=== PATIENT | male | born 1955 | race Caucasian/White ===

== ENCOUNTER 2020-10-12 18:21 | Inpatient (IN) | payer OTHER ==
[~2020-10-12] VITALS: Ht 170.2 cm; Wt 81.6 kg
[~2020-10-12 18:21] MED LIST: ALTACE5 M1 PO; AMOXICILLIN875 MG PO; ATORVASTATIN CA20 MG PO; BAYER CHEWABLE81 MG PO; BENICAR HCT 401 EAC1 PO; BENICAR20 MG; CENTRUM SILVER1 EAC2 PO; EFFIENT10 MG PO; FENOFIBRATE48 MG PO; FISH OIL 1,0001 EAC5 PO; FISH OIL 1,001000 M2 PO; KOMBIGLYZE XR1 EACH PO; LANTUS SUBQ; LEVEMIR SUBQ; LOPRESSOR 50 MG50 M1 PO; LOPRESSOR25 PO; LOPRESSOR50 PO; METOPROLOL SUCC50 MG PO; NORCO 5-325 TA1 EACH PO; NORVASC 2.5 MG2.5 M1 PO; NOVOLOG100 UNIT/1 SUBQ; PLAVIX 75 MG TA75 M1 PO; SIMVASTATIN40 MG PO; TRICOR145 MG PO; TYLENOL325 MG PO
[2020-10-12 18:33] VITALS: BP 150/88
[2020-10-12 19:53] LABS: ABSOLUTE NEUTROPHILS 6.9 thou/uL (1.4-8.2); BASOPHILS 1.1 % (0.0-2.0); EOSINOPHILS 1.9 % (0.0-3.0); HEMATOCRIT 37.2 % (42.0-52.0); HEMOGLOBIN 12.8 gm/dL (14.0-18.0); LYMPHOCYTES 19.8 % (24.0-44.0); MCH 32.3 pg (26.0-34.0); MCHC 34.4 g/dL (28.0-37.0); MCV 93.9 fL (80.0-100.0); MONOCYTES 8.9 % (1.0-8.0); PLATELET COUNT 241 thou/uL (150-400); POLYS 68.3 % (36.0-66.0); RBC 3.96 mil/uL (4.50-6.00); RDW 12.9 % (10.5-14.5); WBC 10.1 thou/uL (4.0-11.0)
[2020-10-12 20:01] LABS: ANION GAP 9 mmol/L (7-16); BUN 37 mg/dL (7-18); CALCIUM 10.2 mg/dL (8.5-10.1); CHLORIDE 103 mmol/L (98-107); CO2 26 mmol/L (21-32); CREATININE 2.5 mg/dL (0.7-1.3); GLUCOSE 187 mg/dL (74-106); POTASSIUM 3.9 mmol/L (3.5-5.1); SODIUM 138 mmol/L (136-145)
[2020-10-12 20:07] LABS: ALBUMIN 4.1 g/dL (3.4-5.0); DIRECT BILIRUBIN < 0.1 mg/dL (<0.1-0.2); SGOT 19 U/L (15-37); SGPT 27 U/L (16-63); TOTAL BILIRUBIN 0.3 mg/dL (0.2-1.0); TOTAL PROTEIN 8.1 g/dL (6.4-8.2)
[2020-10-12 20:48] VITALS: BP 150/88
--- NOTE | 2020-10-12 21:06 | NUR ---
ATTEMPTED TO CALL REPORT TO [facility]. UNABLE TO TAKE REPORT
[2020-10-12] MEDS ORDERED: GLIPIZIDE 10 MG10 MG PO (21:10)
[2020-10-12] MEDS ORDERED: GLUCOPHAGE1000 MG PO (21:10)
[2020-10-12] MEDS ORDERED: NOVOLOG100 UNIT/M SUBQ (21:11)
[2020-10-12] MEDS ORDERED: FENOFIBRATE145 M1 PO (21:11)
[2020-10-12] MEDS ORDERED: ZESTORETIC 20-1 EACH PO (21:13)
[2020-10-12] MEDS ORDERED: TOPROL XL100 MG PO (21:14)
[2020-10-12] MEDS ORDERED: GLUCOTROL10 MG PO (21:14)
[2020-10-12 21:30] VITALS: BP 172/82
[2020-10-12] MEDS ORDERED: METOPROLOL SUCC50 MG PO (23:20)
[2020-10-13 02:12] VITALS: BP 172/82
--- NOTE | 2020-10-13 04:59 | NUR ---
ADMIT PT A/O X4 UP AD MICKIE DENIES PAIN. ADMISSION PROCESS COMPLETED. PHOTOGRAPH OF LEFT FOOT WOUND, AREA CLEANSED THEN MOISTURIZED COVERED WITH XEROFORM GAUZE AND KERLIX. ORIENTED TO ROOM CALL LIGHT SYSTEM AND POC. CONSULTS NOTIFIED CONTINUE TO MONITOR.
[2020-10-13 05:26] LABS: HEMATOCRIT 35.1 % (42.0-52.0); HEMOGLOBIN 11.5 gm/dL (14.0-18.0); MCH 31.2 pg (26.0-34.0); MCHC 32.8 g/dL (28.0-37.0); MCV 95.3 fL (80.0-100.0); RBC 3.69 mil/uL (4.50-6.00); WBC 10.2 thou/uL (4.0-11.0)
[2020-10-13 05:42] LABS: CALCIUM 9.1 mg/dL (8.5-10.1); CREATININE 2.1 mg/dL (0.7-1.3); POTASSIUM 3.8 mmol/L (3.5-5.1)
[2020-10-13 07:41] VITALS: BP 134/76
[2020-10-13] MEDS ORDERED: FREESTYLE LIBR1 EAC2 MISCELL (09:13)
[2020-10-13 15:18] VITALS: BP 148/76
--- NOTE | 2020-10-13 17:12 | NUR ---
PT ASSESSED AT START OF SHIFT. NO C/O PAIN IN LT FOOT. DR. MANCIA IN THIS AM TO SEE PT. ULTRASOUND DONE ON VASCULAR FLOW. DSNG CHANGED PER MRI TO BE DONE THURSDAY NOT NEEDED URGENTLY. ACCUCK LOW THIS AM BUT BETTER THIS AFTERNOON. PT UP IN THE RECLINER W/ LEGS ELEVATED.
[2020-10-13 19:33] VITALS: BP 143/79
--- NOTE | 2020-10-14 05:26 | HC ---
[facility] [place] [address] CONSULTATION Name: PATRICIA ROBBISN Room #: 455-P ADM IN M.R.#: [id number] Admission: 10/12/20 Attend Phys: Naman Dinh MD Discharge: Date of : 53 Report #: [id number] THIS REPORT FOR: cc: Thierry Crocker MD, Jinming MD Barry,Heraclio Rose MD ~ DATE OF SERVICE: 10/13/2020 INFECTIOUS DISEASE CONSULTATION ATTENDING PHYSICIAN: Dr. Dinh REASON FOR EVALUATION: Diabetic foot ulcer, suspected deep infection. HISTORY OF SUBJECTIVE: Chart reviewed, patient examined. This is a 65-year-old gentleman with diabetes mellitus complicated by peripheral neuropathy, had developed a change in his toe, only noticed because he was showering. Denies any significant pain associated with it. This is involved with left fourth toe, had been evaluated in the Emergency Room at another hospital, felt to have an infectious process, was discharged on antibiotics and referred to manager surgical. Did see a manager surgical in followup, who was recommended for admission, underwent plain imaging which did not show any evidence of bony changes to suggest an osteomyelitis. MRI is pending. His inflammatory markers have been borderline elevated. Blood sugars have not been significantly elevated, empirically started on therapy with vancomycin. Blood and tissue cultures are in progress. Denies any pulmonary or gastrointestinal related complaints. He has not been febrile. ALLERGIES: None known. MEDICATIONS: Include enoxaparin, atorvastatin, metoprolol, multivitamin, aspirin, fenofibrate, vancomycin, p.r.n. analgesics and antiemetics. PAST MEDICAL HISTORY: Diabetes mellitus complicated by peripheral neuropathy, history of hypertension, has known vasculopathy, coronary artery disease, previous aortocoronary bypass grafting. SOCIAL HISTORY: Nonsmoker, occasional ethanol, no illicit drug use. FAMILY HISTORY: Noncontributory. REVIEW OF SYSTEMS: Otherwise, unremarkable 10-point review of systems. PHYSICAL EXAMINATION: GENERAL: He is alert, cooperative, appears somewhat mildly undernourished. He [address] [address] CONSULTATION Name: PATRICIA ROBBINS Room #: [address] [place] [address] IN ..#: [id number] Admission: 10/12/20 Attend Phys: Naman Dinh MD Discharge: Date of : 53 Report #: [id number] is lucid. VITAL SIGNS: Temperature 98.1, pulse 63, respiratory rate 18, blood pressure 172/82. SKIN: Warm, dry, no rashes. HEENT: Normocephalic. Extraocular muscles intact. NECK: Supple. LUNGS: Generally clear to auscultation bilaterally. HEART: Regular. Borderline bradycardic. I do not appreciate murmur. ABDOMEN: Soft, mildly distended, nontender. EXTREMITIES: Distal left lower extremity has a dressing in place. I did review the photographs of the fourth toe, has moderate to marked inflammatory changes. GENITOURINARY AND RECTAL: Deferred. LABORATORY DATA: Electrolytes this morning, sodium 140, potassium 3.8, chloride 106, bicarbonate is 22, anion gap of 14, BUN and creatinine 34 and 2.1 the latter actually is down from admission 2.5. LFTs were unremarkable. Albumin 4.1, total protein of 8.1. Lactic acid 1.6. CRP of ____. Sed rate of 53. ASSESSMENT: Left fourth toe likely deep seated infection in a patient with diabetes mellitus complicated by peripheral neuropathy. Agree with empiric therapy, vancomycin should give us reasonable gram-positive coverage. At this point, there is no particular odor, no overt purulence that I could appreciate. The MRI is pending as are the cultures noted. ____ involved. We will defer to any surgical debridement that may be necessary. We will add incentive spirometry. Monitor expectantly. <ELECTRONICALLY SIGNED> By: Heraclio Miller MD 10/14/20 0526 0835 1016 Heraclio Miller MD /nt
--- NOTE | 2020-10-14 06:21 | NUR ---
Pt. rested quietly during the night when checked on during frequent rounds. He offers no c/o pain. Left foot rewapped.
[2020-10-14 07:25] VITALS: BP 144/86
[2020-10-14 15:25] VITALS: BP 138/65
--- NOTE | 2020-10-14 19:54 | NUR ---
Assumed care of pt. at 0700. Pt. was calm and cooperative. Pt. was not in pain. Dr. Ryan's SOFTWARE QUALITY TEST ENGINEER called and ordered pt. be NPO after midninght for angiogram on morning og 10/15/20 with orders to also hold enoxaparin.
[2020-10-14 20:16] VITALS: BP 145/65
[2020-10-14 21:24] LABS: GLYCOHEMOGLOBIN (HGB A1C) 7.6 % (4.8-5.6)
--- NOTE | 2020-10-15 05:06 | NUR ---
Pt. rested quietly during the night when checked on during frequent rounds. He offers no c/o pain. Dressing to left foot is dry and intact.
[2020-10-15 07:54] VITALS: BP 140/63
[2020-10-15 08:00] LABS: CALCIUM 9.4 mg/dL (8.5-10.1); CREATININE 2.2 mg/dL (0.7-1.3); POTASSIUM 4.3 mmol/L (3.5-5.1)
--- NOTE | 2020-10-15 08:54 | NUR ---
PT A&OX4, VSS, DENIES PAIN. PATIENT STEADY GAIT TO BATHROOM. PATIENT WENT DOWN FOR ANGIOGRAM APPROX 0845. NO SIGNS OF DISTRESS. WILL CONTINUE TO MONITOR.
[2020-10-15 15:26] VITALS: BP 149/90
--- NOTE | 2020-10-15 17:37 | NUR ---
PT TRANSFERED FROM [facility] POST ARTERIOGRAM. PT ORINETED TO ROOM AND BEDSPACE VSS AND GROIN SITE STABLE POST PROCEDURE. CONSTANZA DIET AND FLUIDS. ACCUCHECK CHARTED - MEDS PER DEC- PT TO BE NPO AFTER MN FOR POSSIBLE SURGERY IN THE AM. NO CO'S AT THE PRESENT TIME.
[2020-10-15 20:15] VITALS: BP 149/86
[2020-10-16] VITALS: BP 157/89
[2020-10-16 04:00] VITALS: BP 150/80
[2020-10-16 04:48] LABS: HEMATOCRIT 33.9 % (42.0-52.0); HEMOGLOBIN 11.4 gm/dL (14.0-18.0); MCH 31.7 pg (26.0-34.0); MCHC 33.5 g/dL (28.0-37.0); MCV 94.7 fL (80.0-100.0); RBC 3.58 mil/uL (4.50-6.00); RDW 12.8 % (10.5-14.5); WBC 12.3 thou/uL (4.0-11.0)
[2020-10-16 05:00] VITALS: BP 146/84
[2020-10-16 05:13] LABS: CALCIUM 8.6 mg/dL (8.5-10.1); CREATININE 1.9 mg/dL (0.7-1.3); POTASSIUM 3.8 mmol/L (3.5-5.1)
[2020-10-16 07:24] VITALS: BP 155/86
[2020-10-16] MEDS ORDERED: AUGMENTIN 875-1 EACH PO (10:24)
[2020-10-16] MEDS ORDERED: CLOPIDOGREL75 MG PO (10:24)
--- NOTE | 2020-10-16 10:56 | NUR ---
met with patient who admits with cellulitis of foot. Patient reports he lives at home alone. He has flight of steps to basement. 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 he does not use any DME. He has rec HH in past but cannot recall agency. If dc with orders for HH care he has no preference for agency. Verified address and phone number and PCP Dr Crocker. Tenative plan for dc today.
[2020-10-16 11:27] VITALS: BP 135/72
[2020-10-16 11:59] VITALS: BP 135/72
--- NOTE | 2020-10-16 12:06 | NUR ---
FAXED REFERRAL TO [facility] HH SPOKE WITH LIZZY IN INTAKE THEY CAN ACCEPT PT AT [place].
--- NOTE | 2020-10-16 14:37 | NUR ---
DISCHARGE AND MEDICATIONS INSTRUCTIONS GIVEN TO PATIENT AND PATIENT DISCHARGED HOME.
--- NOTE | 2020-10-16 16:12 | NUR ---
PT DISCHARGED EARLIER TODAY RECEIVED CALL FROM ALEX IRIZARRY AT [facility] SHE WAS NEEDING SPECIFIC DRESSING CHANGE ORDERS AND I FAXED TODAY'S PROGRESS NOTE FROM DR MANCIA AND LET THEM KNOW THAT IF THEY PROGRESS NOTES IS NOT ENOUGH THEN THEY WILL HAVE TO F/U WITH DR. MANCIA.
[2020-10-22] MEDS ORDERED: VALIUM10 MG PO (09:13)
== END 2020-10-16 14:53 | disposition home health service (06) | DRG 270 ==
LOC: ER 18:21 → 4W 20:40 → EROBS 20:40 → 4W 21:53 → 2N 10-15 12:08
PROVIDERS: Emergency Medicine; Nurse Practitioner; Nurse Practitioner Family; ADMIT Hospitalist; ATTEND Hospitalist
PROC: 04VL3DZ Restriction of Left Femoral Artery with Intraluminal Device, Percutaneous Approach (ICD-10-PCS; principal; 2020-10-15)
PROC: 04CN3ZZ Extirpation of Matter from Left Popliteal Artery, Percutaneous Approach (ICD-10-PCS; principal; 2020-10-15)
PROC: 04CL3ZZ Extirpation of Matter from Left Femoral Artery, Percutaneous Approach (ICD-10-PCS; principal; 2020-10-15)
PROC: B4151ZZ Fluoroscopy of Inferior Mesenteric Artery using Low Osmolar Contrast (ICD-10-PCS; principal; 2020-10-15)
PROC: B4141ZZ Fluoroscopy of Superior Mesenteric Artery using Low Osmolar Contrast (ICD-10-PCS; principal; 2020-10-15)
PROC: B4181ZZ Fluoroscopy of Bilateral Renal Arteries using Low Osmolar Contrast (ICD-10-PCS; principal; 2020-10-15)
PROC: B41D1ZZ Fluoroscopy of Aorta and Bilateral Lower Extremity Arteries using Low Osmolar Contrast (ICD-10-PCS; principal; 2020-10-15)
PROC: 06HD3DZ Insertion of Intraluminal Device into Left Common Iliac Vein, Percutaneous Approach (ICD-10-PCS; principal; 2020-10-15)
PROC: 04HA3DZ Insertion of Intraluminal Device into Left Renal Artery, Percutaneous Approach (ICD-10-PCS; principal; 2020-10-15)
DX: E11.51 Type 2 diabetes mellitus with diabetic peripheral angiopathy without gangrene (principal); N17.0 Acute kidney failure with tubular necrosis; K55.1 Chronic vascular disorders of intestine; T82.858A Stenosis of other vascular prosthetic devices, implants and grafts, initial encounter; E11.621 Type 2 diabetes mellitus with foot ulcer; L03.032 Cellulitis of left toe; E11.42 Type 2 diabetes mellitus with diabetic polyneuropathy; I10 Essential (primary) hypertension; E78.5 Hyperlipidemia, unspecified; I77.1 Stricture of artery; Y83.8 Other surgical procedures as the cause of abnormal reaction of the patient, or of later complication, without mention of misadventure at the time of the procedure; I25.10 Atherosclerotic heart disease of native coronary artery without angina pectoris; I25.2 Old myocardial infarction; Z79.01 Long term (current) use of anticoagulants; Z79.4 Long term (current) use of insulin; Z79.899 Other long term (current) drug therapy; Y92.89 Other specified places as the place of occurrence of the external cause; Z20.828 Contact with and (suspected) exposure to other viral communicable diseases
CPT/HCPCS: 10040; 10081

== ENCOUNTER → 2020-10-22 | Outpatient (CLI) | payer OTHER ==
[2020-10-22] VITALS (8 sets, daily range): BP systolic 133–147; BP diastolic 70–81
[~2020-10-22] VITALS: Ht 170.2 cm; Wt 81.6 kg
[~2020-10-22] MED LIST changes: +AUGMENTIN 875-1 EACH PO; +CLOPIDOGREL75 MG PO; +FENOFIBRATE145 M1 PO; +FREESTYLE LIBR1 EAC2 MISCELL; +GLIPIZIDE 10 MG10 MG PO; +GLUCOPHAGE1000 MG PO; +GLUCOTROL10 MG PO; +NOVOLOG100 UNIT/M SUBQ; +TOPROL XL100 MG PO; +VALIUM10 MG PO; +ZESTORETIC 20-1 EACH PO
[2020-10-22 09:10] LABS: CALCIUM 10.3 mg/dL (8.5-10.1); CREATININE 2.1 mg/dL (0.7-1.3); POTASSIUM 3.7 mmol/L (3.5-5.1)
== END | disposition home or self-care (01) ==
LOC: CATH 07:55
PROVIDERS: ATTEND Nuclear Medicine Nuclear Cardiology
DX: E11.621 Type 2 diabetes mellitus with foot ulcer (principal); L97.512 Non-pressure chronic ulcer of other part of right foot with fat layer exposed; I70.238 Atherosclerosis of native arteries of right leg with ulceration of other part of lower leg; I70.1 Atherosclerosis of renal artery; L03.115 Cellulitis of right lower limb; I10 Essential (primary) hypertension; I25.10 Atherosclerotic heart disease of native coronary artery without angina pectoris; E78.00 Pure hypercholesterolemia, unspecified; I25.2 Old myocardial infarction; Z98.890 Other specified postprocedural states; Z79.899 Other long term (current) drug therapy; Z79.4 Long term (current) use of insulin

== ENCOUNTER → 2020-11-02 | Outpatient (CLI) | payer OTHER ==
[~2020-11-02] MED LIST changes: +ASA81BEC PO; +DAILY VALUE1 EAC1 PO; +GLUMETZA1000 PO; +LIPITOR40 MG PO; +PLAVIX 75 MG TA75 MG PO; +TOPROL XL50 MG PO; +ZESTORETIC 20-1 EAC3 PO
== END ==
LOC: LAB 11:40
PROVIDERS: ATTEND Podiatrist Foot & Ankle Surgery
DX: Z01.812 Encounter for preprocedural laboratory examination (principal); Z20.828 Contact with and (suspected) exposure to other viral communicable diseases

== ENCOUNTER 2020-11-06 06:09 | Day surgery (SDC) | payer OTHER ==
[~2020-11-06] VITALS: Ht 170.2 cm; Wt 78.9 kg
[2020-11-06 07:29] VITALS: BP 102/63
--- NOTE | 2020-11-06 07:40 | EKG ---
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 : 1955 Requested By: Eber Little Order Number: [id number] MD: Savage Liang Measurements Intervals [place] Rate: 61 P: 44 AL: 163 QRS: -8 QRSD: 103 T: 138 QT: 435 QTc: 439 Interpretive Statements Sinus rhythm Inferior infarct, old Lateral leads are also involved Compared to ECG 01/23/2015 13:10:57 Left ventricular hypertrophy no longer present Myocardial infarct finding still present Electronically Signed On 11-06-2020 7:40:49 WAITER/WAITRESS BAR by Savage Liang [email or web address] <ELECTRONICALLY SIGNED> By: Savage Liang MD, [facility] 11/06/20 0740 1 Savage Liang MD, [facility] /EPI
[2020-11-06] MEDS ORDERED: ULTRAM 50MG TAB50 MG PO (08:30)
[2020-11-06 08:50] VITALS: BP 102/63
--- NOTE | 2020-11-09 12:10 | PATH ---
[facility] [address] [place] [address] PATHOLOGY RPT PROCEDURE Name: SAVAGE ROBBINS Room #: DEP [facility] M.R.#: [id number] Admission: 11/06/20 Date of : 53 Discharge: 11/06/20 Report #: [id number] Path Case #: [id number] [facility] Accession Number: [id number] . 01 Material submitted: . toe - LEFT FOURTH TOE. Modifiers: fourth, left . 01 Clinical history: . AMPUTATION ELAM GRADE 3 DIABETIC FOOT ULCER WITH OSTEOMYLETITIS LEFT 4TH TOE . 02 Diagnosis: Toe, left foot toe, amputation: - Marked acute inflammation within subcutaneous tissue. - Acute inflammation involving bone consistent with acute osteomyelitis. - Margins of bone showing unremarkable and viable bone. (IUV:rocky; 11/08/2020) MBR 11/09/2020 1015 Local . 02 Electronically signed: . Shell Mendoza MD, Pathologist NPI- [id number] . 01 Gross description: . The specimen is received in formalin, labeled "Savage Robbins, left fourth toe". Received is an amputated digit measuring 4.3 x 1.9 x 1.8 cm in greatest dimensions. The bone margin is smooth and concave in appearance, consistent with disarticulation, and is inked black. The skin and soft tissue extends 1.8 cm proximal to the bone margin. The nail is present displaying a pale cruz and grossly unremarkable appearance. On the lateral aspect of the specimen, there is a well-circumscribed, depressed and light brown lesion measuring 0.8 x 0.5 cm, which is 0.4 cm from the closest margin. The remainder of the epidermal surface is pale cruz and flaky in appearance. The specimen is submitted representatively as follows: . A1 eligibility services representative section of lesion on lateral aspect of toe A2 full-thickness longitudinal cross-section, following decalcification. . Also received within the specimen container is an additional fragment of bone displaying one smooth, concave margin and one smooth, convex margin, both of which are consistent with disarticulation. The concave margin is inked black. A full-thickness longitudinal cross-section is submitted in cassette A3, following decalcification. (CAA; 11/07/2020) QAC/QAC 11/07/2020 1103 Local . [address] [place] [address] PATHOLOGY RPT PROCEDURE Name: SAVAGE ROBBINS Room #: DEP [facility] Shayan#: [id number] Admission: 11/06/20 Date of : 53 Discharge: 11/06/20 Report #: [id number] Path Case #: [id number] Pathologist provided ICD-10: L98.9, M86.172 . 02 CPT . 000092, 679166 Specimen Comment: A courtesy copy of this report has been sent to [phone], 156-[facility] Specimen Comment: [phone] Specimen Comment: Report sent to / DR BOB Performed at: [address], [place] [id number] MD Oskar Vizcaino MD Phone: [phone] Performed at: [address] [id number] MD Shell Mendoza MD Phone: [phone]
== END 2020-11-06 09:53 | disposition home or self-care (01) ==
LOC: OR 06:09 → TBA 06:10 → OR 09:53
PROVIDERS: ATTEND Podiatrist Foot & Ankle Surgery
DX: E11.621 Type 2 diabetes mellitus with foot ulcer (principal); L97.524 Non-pressure chronic ulcer of other part of left foot with necrosis of bone; M86.172 Other acute osteomyelitis, left ankle and foot; L98.9 Disorder of the skin and subcutaneous tissue, unspecified; I10 Essential (primary) hypertension; E78.00 Pure hypercholesterolemia, unspecified; I73.9 Peripheral vascular disease, unspecified; I25.2 Old myocardial infarction; Z98.890 Other specified postprocedural states; Z79.899 Other long term (current) drug therapy; Z86.73 Personal history of transient ischemic attack (TIA), and cerebral infarction without residual deficits; Z95.1 Presence of aortocoronary bypass graft; Z79.4 Long term (current) use of insulin
CPT/HCPCS: 50010; 50101; 50386; 56524; 56527; 57091; 62110; 62900; 70005

== ENCOUNTER 2020-11-07 20:59 | Emergency (ER) | payer OTHER ==
[~2020-11-07] VITALS: Ht 177.8 cm; Wt 72.6 kg
[~2020-11-07 20:59] MED LIST changes: +ULTRAM 50MG TAB50 MG PO
[2020-11-07 21:02] VITALS: BP 142/70
== END 2020-11-07 22:10 | disposition home or self-care (01) ==
LOC: ER 20:59
DX: M96.831 Postprocedural hemorrhage of a musculoskeletal structure following other procedure (principal); Z79.899 Other long term (current) drug therapy; Z79.82 Long term (current) use of aspirin

== ENCOUNTER → 2021-01-23 | Outpatient (CLI) | payer OTHER | LOC: SJCVCIMAG 09:16 | PROVIDERS: ATTEND Nuclear Medicine Nuclear Cardiology | DX: I70.203 Unspecified atherosclerosis of native arteries of extremities, bilateral legs (principal); K55.1 Chronic vascular disorders of intestine; I70.1 Atherosclerosis of renal artery; I25.10 Atherosclerotic heart disease of native coronary artery without angina pectoris; E11.621 Type 2 diabetes mellitus with foot ulcer; L97.509 Non-pressure chronic ulcer of other part of unspecified foot with unspecified severity; E11.40 Type 2 diabetes mellitus with diabetic neuropathy, unspecified; E11.51 Type 2 diabetes mellitus with diabetic peripheral angiopathy without gangrene; Z95.1 Presence of aortocoronary bypass graft; Z72.89 Other problems related to lifestyle; Z79.82 Long term (current) use of aspirin; Z79.4 Long term (current) use of insulin; Z79.899 Other long term (current) drug therapy; Z95.820 Peripheral vascular angioplasty status with implants and grafts ==

== ENCOUNTER → 2021-10-31 | Outpatient (CLI) | payer OTHER | LOC: SJCVCIMAG 09-17 13:04 | PROVIDERS: ATTEND Nuclear Medicine Nuclear Cardiology | DX: I65.23 Occlusion and stenosis of bilateral carotid arteries (principal); I70.203 Unspecified atherosclerosis of native arteries of extremities, bilateral legs; I10 Essential (primary) hypertension; M79.606 Pain in leg, unspecified ==

== ENCOUNTER → 2021-11-06 | Outpatient (CLI) | payer OTHER ==
[~2021-11-06] MED LIST changes: +COZAAR 25 MG TA25 M2 PO; +GLIMEPIRIDE1 MG PO; +JARDIANCE10 MG PO
== END ==
LOC: SJCVC 14:49
PROVIDERS: ATTEND Nuclear Medicine Nuclear Cardiology
DX: R94.31 Abnormal electrocardiogram [ECG] [EKG] (principal); I25.10 Atherosclerotic heart disease of native coronary artery without angina pectoris; I73.9 Peripheral vascular disease, unspecified; I77.9 Disorder of arteries and arterioles, unspecified; I70.1 Atherosclerosis of renal artery; K55.1 Chronic vascular disorders of intestine; E11.9 Type 2 diabetes mellitus without complications; R06.00 Dyspnea, unspecified; E78.5 Hyperlipidemia, unspecified; E11.40 Type 2 diabetes mellitus with diabetic neuropathy, unspecified; I77.1 Stricture of artery; Z95.1 Presence of aortocoronary bypass graft; Z79.82 Long term (current) use of aspirin; Z79.4 Long term (current) use of insulin; Z79.899 Other long term (current) drug therapy

== ENCOUNTER → 2021-11-18 | Outpatient (CLI) | payer OTHER | LOC: SJCVCIMAG 09:20 | PROVIDERS: ATTEND Internal Medicine Cardiovascular Disease | DX: I08.1 Rheumatic disorders of both mitral and tricuspid valves (principal); I25.10 Atherosclerotic heart disease of native coronary artery without angina pectoris; I73.9 Peripheral vascular disease, unspecified; K55.1 Chronic vascular disorders of intestine; I77.9 Disorder of arteries and arterioles, unspecified; I70.1 Atherosclerosis of renal artery; E11.9 Type 2 diabetes mellitus without complications; R06.00 Dyspnea, unspecified; E78.5 Hyperlipidemia, unspecified; Z95.1 Presence of aortocoronary bypass graft; Z72.89 Other problems related to lifestyle; Z79.82 Long term (current) use of aspirin; Z79.899 Other long term (current) drug therapy; Z79.4 Long term (current) use of insulin; Z95.5 Presence of coronary angioplasty implant and graft; Z82.49 Family history of ischemic heart disease and other diseases of the circulatory system ==

== ENCOUNTER → 2021-11-20 | Outpatient (CLI) | payer OTHER ==
[~2021-11-20] VITALS: Ht 172.7 cm; Wt 79.4 kg
[2021-11-20 10:15] VITALS: BP 126/66
[2021-11-20 10:55] LABS: HEMATOCRIT 44.3 % (42.0-52.0); HEMOGLOBIN 14.7 gm/dL (14.0-18.0); MCH 31.5 pg (26.0-34.0); MCHC 33.1 g/dL (28.0-37.0); MCV 95.1 fL (80.0-100.0); RBC 4.65 mil/uL (4.50-6.00); WBC 6.2 thou/uL (4.0-11.0)
[2021-11-20 10:56] LABS: CALCIUM 9.9 mg/dL (8.5-10.1); CREATININE 2.1 mg/dL (0.7-1.3); POTASSIUM 3.2 mmol/L (3.5-5.1)
--- NOTE | 2021-11-20 13:21 | EKG ---
[place] [address] [facility] [place] [email or web address] [address] ELECTROCARDIOGRAM REPORT Name: SAVAGE ROBBINS [id number] Admission: 11/20/21 Attend Phys: Ryan Tomas MD Discharge: Date of : 53 Report #: [id number] [facility] Test Date: 2021-11-20 Test Time: 10:16:00 Pat Name: SAVAGE ROBBINS Department: Room: Gender: Professor Of Literature: [facility] : 1955 Requested By: Ryan Tomas Order Number: [id number] MD: Savage Liang Measurements Intervals [place] Rate: 53 P: 45 UT: 169 QRS: 3 QRSD: 126 T: 188 QT: 471 QTc: 443 Interpretive Statements Sinus rhythm Probable left atrial enlargement Left bundle branch block Compared to ECG 11/06/2020 06:42:43 Left bundle-branch block now present Myocardial infarct finding no longer present Electronically Signed On 11-20-2021 13:20:54 EQUALIZER OPERATOR by Savage Liang [email or web address] <ELECTRONICALLY SIGNED> By: Savage Liang MD, [facility] 11/20/21 1320 1016 1016 Savage Liang MD, FACC /EPI
--- NOTE | 2021-11-21 17:57 | CATHLAB ---
[facility] [place] [address] INVASIVE PROCEDURE REPORT Name: PATRICIA ROBBINS Room #: REG JEMAL BellKecia#: [id number] Admission: 11/20/21 Attend Phys: Ryan Tomas MD Discharge: Date of : 53 Report #: [id number] THIS REPORT FOR: cc: Irwin Cheung MD, Christopher B. MD Mancuso, Gerald M. MD [facility] ~ APPROVED REPORT Study performed: 11/20/2021 12:43:00 Patient Details Patient Status: Out-Patient Room #: The patient is a 66 year-old male Event Personnel Shakir Hand Cryptologic Support Specialist, Marivel Vaughan RN RN, Mary Taylor RTR Scrub, Ron Anaya RTR Monitor Procedures Performed Art Access - R femoral artery* , Right/Left Heart Cath Coronaries, Bypass Grafts [id number] RLLVCORCABHemostasis w/ Mynx 73495 Initial Mod Sed Same Phys/QHP Gr5y 512208 21861 Mod Sed Same Phys/QHP Ea [id number] Indication Chest pain Procedure Narrative The patient was brought electively to the Cardiac Catheterization Laboratory and was prepped and draped in a sterile manner. The Right Groin^ was infiltrated with 1% Lidocaine subcutaneous anesthesia. A Right Heart Catheterization was performed with a 7 Fr. Stock[place]-Nani catheter and pressure were recorded. Cardiac outputs were obtained by the Thermal Dilution method. A PINNACLE 6FR Sheath #[id number] sheath was inserted into the RFA^. Coronary angiography was performed using coronary diagnostic catheters. The right coronary system was accessed and visualized with a 6FR RCB #[id number] catheter. The left coronary system was accessed and visualized with a JL4 catheter. The left ventricle was accessed and visualized with a PIGTAIL catheter. Left ventricular/Aortic Valve gradient assessed via catheter pullback. Closure device was deployed with a Fr MYNXGRIP 6/7F #[id number]. The patient tolerated the procedure well and there were no complications associated with the procedure. There was no hematoma. [facility] [address] [place] [address] INVASIVE PROCEDURE REPORT Name: PATRICIA ROBBINS Room #: REG MIGUEL A Downey#: [id number] Admission: 11/20/21 Attend Phys: Ryan Tomas, Discharge: Date of : 53 Report #: [id number] Intraoperative Conscious Sedation Sedation start time: 13:27 Case end Time: 14:26 Fentanyl 50 mcg Versed 1 mg Fluoro Time: 11.51 minutes Dose: DAP 6801.90 cGycm2 720 mGy Contrast Type and Amount: Visipaque 55 ml Hemodynamics The right atrial mean pressure is 16 mmHg. The pulmonary artery pressure is 61/28 mmHg with a mean of 40 mmHg. The aortic pressure is 135/72 mmHg with a mean of 93 mmHg. The left ventricular pressure is 137/15 mmHg with a mean of mmHg. The left ventricular end diastolic pressure is 34 mmHg. The cardiac output using thermo method is 2.45 L/min. The cardiac index using thermo method is 1.27 L/min/m2. Conclusion #1 Successful right heart catheterization with cardiac output by thermodilution. See above hemodynamics. #2 mildly dilated left ventricle. Inferior wall is akinetic EF 35% #3 a moderately diseased left main giving rise to an occluded LAD and a small circumflex which then occludes. Supplying minimal left system. #4 the [place] to LAD is intact briskly filling this LAD that may have been a jump graft to a diagonal or retrograde filling the diagonal which remains patent although small in size. #5 the samish right coronary artery is occluded. #6 the graft to the PDA with multiple prior stents is ostially occluded. #7 an SVG to the circumflex OM is occluded Recommendations and plan: Continue aggressive risk factor modification. There is no indication for percutaneous intervention or revascularization by bypass. Patient is essentially living on this [place] to LAD some faint collateral filling from the samish left system to the posterior lateral branch. Hemodynamically stable. Diuretic added to regimen. 5 patient will have follow-up in 1 week. <ELECTRONICALLY SIGNED> By: Shakir Hand MD, FACC 11/21/211755 55 55 Shakir Hand MD, FACC /INF
== END | disposition home or self-care (01) ==
LOC: CATH 07:12
PROVIDERS: ATTEND Nuclear Medicine Nuclear Cardiology
DX: R07.9 Chest pain, unspecified (principal); I25.810 Atherosclerosis of coronary artery bypass graft(s) without angina pectoris; R94.39 Abnormal result of other cardiovascular function study; I10 Essential (primary) hypertension; E11.621 Type 2 diabetes mellitus with foot ulcer; E78.5 Hyperlipidemia, unspecified; Z98.890 Other specified postprocedural states; Z79.899 Other long term (current) drug therapy; Z95.1 Presence of aortocoronary bypass graft; Z82.49 Family history of ischemic heart disease and other diseases of the circulatory system; Z86.73 Personal history of transient ischemic attack (TIA), and cerebral infarction without residual deficits

== ENCOUNTER → 2021-11-29 | Outpatient (CLI) | payer OTHER | LOC: SJCVC 09:21 | PROVIDERS: ATTEND Nurse Practitioner Adult Health | DX: R94.31 Abnormal electrocardiogram [ECG] [EKG] (principal); I25.10 Atherosclerotic heart disease of native coronary artery without angina pectoris; I10 Essential (primary) hypertension; I77.9 Disorder of arteries and arterioles, unspecified; I73.9 Peripheral vascular disease, unspecified; K55.9 Vascular disorder of intestine, unspecified; E11.9 Type 2 diabetes mellitus without complications; I25.5 Ischemic cardiomyopathy; Z95.1 Presence of aortocoronary bypass graft; Z98.61 Coronary angioplasty status; Z98.890 Other specified postprocedural states; Z79.82 Long term (current) use of aspirin; Z79.899 Other long term (current) drug therapy ==

== ENCOUNTER 2021-12-05 09:34 | Emergency (ER) | payer OTHER ==
[~2021-12-05] VITALS: Ht 170.2 cm; Wt 77.1 kg
[2021-12-05 09:35] VITALS: BP 155/75
== END 2021-12-05 11:36 | disposition home or self-care (01) ==
LOC: ER 09:34
DX: S00.93XA Contusion of unspecified part of head, initial encounter (principal); S63.502A Unspecified sprain of left wrist, initial encounter; I25.10 Atherosclerotic heart disease of native coronary artery without angina pectoris; E78.5 Hyperlipidemia, unspecified; E11.40 Type 2 diabetes mellitus with diabetic neuropathy, unspecified; I73.9 Peripheral vascular disease, unspecified; Z95.1 Presence of aortocoronary bypass graft; Z79.82 Long term (current) use of aspirin; Z79.4 Long term (current) use of insulin; Z79.899 Other long term (current) drug therapy; V19.3XXA Pedal cyclist (driver) (passenger) injured in unspecified nontraffic accident, initial encounter; Y93.89 Activity, other specified; Y92.89 Other specified places as the place of occurrence of the external cause; Y99.8 Other external cause status